=== PATIENT | male | born 1990 | race Caucasian/White ===

== ENCOUNTER → 2016-10-27 | Outpatient (CLI) | payer OTHER ==
[~2016-10-27] MED LIST: AMOXICILLIN500 MG PO; AMOXIL500 MG PO; CATAFLAM50 MG PO; CIPROFLOXACIN500 MG PO; DAYPRO600 M1 PO; MOTRIN400 MG PO; MOTRIN800 MG PO; NAPROSYN500 MG PO; NKHM; ROBAXIN750 MG PO; VICO10300 PO; VICODIN 5/500 505 MG PO; ZITHROMAX Z PA250 MG PO; ZOFRAN ODT4 MG SL; ZYRTEC10 MG PO
[2016-10-27 16:26] LABS: URINE AMPHETAMINES < 1000 (1000ng/ml); URINE BARBITURATES < 200 (200ng/ml); URINE BENZODIAZEPINES < 200 (200ng/ml); URINE CANNABINOIDS (THC) > 50 (50ng/ml); URINE COCAINE < 300 (300ng/ml); URINE METHADONE < 300 (300ng/ml); URINE OPIATES < 300 (300ng/ml)
[2016-10-27 16:29] LABS: URINE PHENCYCLIDINE < 25 (25ng/ml)
== END | disposition home or self-care (01) ==
LOC: LAB 16:01
PROVIDERS: Internal Medicine
DX: F11.20 Opioid dependence, uncomplicated (principal)

== ENCOUNTER 2018-03-18 16:12 | Emergency (ER) | payer OTHER ==
[~2018-03-18] VITALS: Wt 74.8 kg
== END 2018-03-18 16:56 | disposition home or self-care (01) ==
LOC: ED 16:12
DX: J03.90 Acute tonsillitis, unspecified (principal)

== ENCOUNTER → 2020-01-26 | Outpatient (CLI) | payer OTHER ==
[~2020-01-26] MED LIST changes: +CIPROFLOXACIN 110 ML OPH
== END ==
LOC: COVID19 15:08
PROVIDERS: ATTEND Internal Medicine
DX: U07.1 COVID-19 (principal)

== ENCOUNTER → 2020-02-04 | Outpatient (CLI) | payer OTHER | LOC: COVID19 15:09 | PROVIDERS: ATTEND Internal Medicine | DX: U07.1 COVID-19 (principal) ==

== ENCOUNTER → 2020-02-14 | Outpatient (CLI) | payer OTHER | END | disposition home or self-care (01) | LOC: COVID19 15:30 | PROVIDERS: ATTEND Internal Medicine | DX: Z20.828 Contact with and (suspected) exposure to other viral communicable diseases (principal) ==

== ENCOUNTER 2023-07-08 12:00 | Emergency (ER) | payer OTHER ==
[~2023-07-08] VITALS: Ht 190.5 cm; Wt 97.5 kg
[2023-07-08] MEDS ORDERED: AMOX-CLAV 875-1 EACH PO (12:15)
[2023-07-08] MEDS ORDERED: Amoxicillin/Clavulanate Pota 875 MG TAB PO ONE (12:20)
== END 2023-07-08 12:46 | disposition home or self-care (01) ==
LOC: ED 12:00
DX: J03.90 Acute tonsillitis, unspecified (principal)

== ENCOUNTER 2024-01-18 17:09 | Emergency (ER) | payer OTHER ==
[~2024-01-18] VITALS: Ht 190.5 cm; Wt 95.3 kg
[~2024-01-18 17:09] MED LIST changes: +AMOX-CLAV 875-1 EACH PO
[2024-01-18] MEDS ORDERED: METRONIDAZOLE 500 MG TAB PO ONE (17:25)
[2024-01-18] MEDS ORDERED: Doxycycline Hyclate 100 MG CAP PO ONE (17:25)
[2024-01-18] MEDS ORDERED: METRONIDAZOLE500 M1 PO (17:28)
[2024-01-18] MEDS ORDERED: DOXYCYCLINE HY100 M3 PO (17:28)
[2024-01-18] MEDS ORDERED: Water, Sterile 10 ML VIAL ONE (18:01)
[2024-01-18 18:30] LABS: BILIRUBIN Negative (Negative); BLOOD Negative (Negative); CLARITY Turbid (Clear); COLOR Yellow (Yellow); GLUCOSE Negative (Negative); KETONE Trace (Negative); LEUKO ESTERASE Negative (Negative); NITRITE Negative (Negative); PH 7.5 (4.5-8.0)
[2024-01-18 18:45] LABS: BACTERIA 1+; WBC 0-2 wbc/hpf (0-5)
== END 2024-01-18 19:07 | disposition home or self-care (01) ==
LOC: ED 17:09
PROVIDERS: Physician Assistant Medical
DX: Z00.8 Encounter for other general examination (principal)